=== PATIENT | male | born 1955 | race Caucasian/White ===

== ENCOUNTER 2018-07-28 11:48 | Day surgery (SDC) | payer OTHER ==
[2018-07-28 13:09] VITALS: BMI 32.8
[2018-07-28] MEDS ORDERED: LIDOCAINE HCL 1%, 10 MG/ML (20ML VIAL) ONE (13:41)
[2018-07-28] MEDS ORDERED: HEPARIN NA (PORCINE) 5,000 UNITS/ML 1ML VIAL ONE (13:41)
[2018-07-28] MEDS ORDERED: MIDAZOLAM HCL 2 MG/2 ML SINGLE DOSE VIAL ONE ×2 (13:53)
--- NOTE | 2018-07-28 13:56 | HP ---
Satellite H - Chief Complaint History of Present Illness: 62 year old man with CKD needs access for planned dialysis. He is right handed. 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[employer]IC: Yes: Dementia Cardiovascular: Yes: HTN, Hyperlipdemia Endocrine: Yes: Diabetes Mellitus - Current Medications Current Medications: Home Medications Medication Instructions Recorded Acetaminophen [Tylenol .Regular 650 mg PO Q4H 05/11/13 Strength -] Folic Acid - 1 mg PO DAILY 05/11/13 Thiamine HCl 100 mg PO DAILY 05/11/13 Insulin (Novolog) [Novolog Flexpen 0 units SQ Q6H #0 pen 05/16/13 -] Multivitamins [Multivit ([facility] 1 tab PO DAILY #0 tab 05/16/13 Formulary)] Tamsulosin HCl [Flomax -] 0.4 mg PO DAILY@0830 #0 cap.er.24h 05/16/13 Insulin (Novolog) [Novolog Flexpen 0 units SQ ACHS #0 pen 04/05/14 -] levETIRAcetam [Keppra -] 750 mg PO BID #0 tablet 04/05/14 Amlodipine Besylate [Norvasc -] 5 mg PO DAILY 07/27/18 Atorvastatin Ca [Lipitor] 10 mg PO DAILY 07/27/18 Carvedilol [Coreg -] 25 mg PO DAILY 07/27/18 Ergocalciferol (Vitamin D2) 2,000 unit PO DAILY 07/27/18 [Vitamin D2] Furosemide [Lasix] 80 mg PO DAILY 07/27/18 Risperidone [Risperdal] 0.25 mg PO TID 07/27/18 Tramadol HCl 50 mg PO TID 07/27/18 Satellite Physical Exam - Physical Examination Vital Signs: Vital Signs Period Temp Pulse Resp BP Sys/Sauceda Pulse Ox Last 24 Hr 97.9 F 80 20 116/77 98 General Appearance: Obese ENT: Clear Lung: Clear to auscultation Heart: Regular rate & rhythm Abdomen: Soft Extremities: No edema Satellite Impression/Plan - Impression/Plan Impression: CKD stage 4 Operative Procedure: Creation AV fistula left arm Date to be Performed: 07/28/18
--- NOTE | 2018-07-28 15:48 | OP ---
Operative Note - Note: Operative Date: 07/28/18 Pre-Operative Diagnosis: CKD Operation: Creation AV fistula left arm Findings: Severe calcification of radial artery Post-Operative Diagnosis: Same as Pre-op Surgeon: Juan F Farfan Anesthesiologist/BATCH ATTENDANT: Mau Root Anesthesia: MAC Estimated Blood Loss (mls): 20
[2018-07-28] MEDS ORDERED: SODIUM CHLORIDE 1,000 ML IV SCH (16:00)
[2018-07-28] MEDS ORDERED: ACETAMINOPHEN 325 MG TABLET (FP) PO PRN (16:41)
[2018-07-28] MEDS ORDERED: oxyCODONE HCL 5 MG TABLET PO PRN (16:41)
[2018-07-28] MEDS: INSULIN (NOVOLOG) ASPART 100 UNITS/ML 10ML VIAL SQ SCH (19:11)
[2018-07-28] MEDS ORDERED: ACETAMINOPHEN 325 MG TABLET (FP) ONE (19:13)
[2018-07-28] MEDS ORDERED: ATORVASTATIN CA 10 MG TABLET (FP) PO SCH (22:00)
[2018-07-29] MEDS: levETIRAcetam 500 MG TABLET (FP) PO SCH ×2 (01:40→09:54)
[2018-07-29] MEDS: traMADol HCL 50 MG TABLET PO SCH ×2 (01:41→06:46)
[2018-07-29] MEDS: ACETAMINOPHEN 325 MG TABLET (FP) PO SCH ×5 (01:41→11:17)
[2018-07-29] MEDS: risperiDONE 0.25 MG TABLET (FP) PO SCH ×2 (01:45→06:46)
[2018-07-29] MEDS: INSULIN (NOVOLOG) ASPART 100 UNITS/ML 10ML VIAL SQ SCH ×3 (01:46→11:20)
[2018-07-29 06:30] VITALS: PULSE 83; TEMP 97.8
[2018-07-29] MEDS ORDERED: TAMSULOSIN HCL 0.4 MG CAP PO SCH (08:30)
[2018-07-29 08:58] VITALS: BP 123/71
[2018-07-29] MEDS ORDERED: CARVEDILOL 25 MG TABLET (FP) PO SCH (10:00)
[2018-07-29] MEDS ORDERED: amLODIPine BESYLATE 5 MG TABLET (FP) PO SCH (10:00)
[2018-07-29] MEDS ORDERED: FUROSEMIDE 40 MG TABLET (FP) PO SCH (10:00)
[2018-07-29] MEDS ORDERED: THIAMINE HCL 100 MG TABLET (FP) PO SCH (10:00)
--- NOTE | 2018-08-02 11:14 | OP ---
DATE OF OPERATION: 07/28/2018 OPERATION: Creation of arteriovenous fistula left arm. PREOPERATIVE DIAGNOSIS: Chronic kidney disease. POSTOPERATIVE DIAGNOSIS: Chronic kidney disease. SURGEON: Juan F Solis M.D. ANESTHESIA: Fractional ANESTHESIOLOGIST: Mau Root MD OPERATIVE FINDINGS: The left radial artery was patent with a severely calcified wall. The cephalic vein was patent with a diameter of approximately 3 mm. OPERATIVE PROCEDURE: Following routine patient identification with site and side verification, intravenous sedation was established. Left axillary block was performed. The arm was prepped with ChloraPrep. Timeout was performed. An incision was made over the distal cephalic vein near the wrist, and the vein was exposed. Cautery was used for hemostasis. The vein was ligated distally and incised. It was distended with heparin and propiverine solution. No. 5 and 8 feeding tubes were passed proximally to the level of the antecubital fossa. The vein was filled with heparin saline solution. The artery was then exposed through a parallel incision, and encircled with vesseloops. Side branches were ligated with ties and divided. The artery was severely calcified. There were areas for clamping, and the artery was occluded with the vesseloops and Bulldog clamps. The artery was opened. Inflow was checked and found to be pulsatile. The vein was then freed and spatulated and anastomosed to the side of the artery with running suture of 6-0 Prolene. Prior to suture line, the artery was allowed to back bleed and flush, and the vein was flushed with heparin solution. Suture line was completed, and all vessels were released. There was good flow through the anastomosis with a palpable pulse in the vein. Hemostasis was achieved with Surgicel. The wounds were then closed with interrupted suture of 3-0 Vicryl and skin cinthia. Sterile dressings were applied, and the patient was taken to the recovery room in stable condition. JUAN F SOLIS M.D. [id number]
== END 2018-07-29 14:02 ==
LOC: JASUSAT 11:48 → JASU-SURG 11:48 → J6S 22:50 → JASUSAT 07-29 14:02
PROVIDERS: ATTEND Surgery
PROC: 031C0ZF Bypass Left Radial Artery to Lower Arm Vein, Open Approach (ICD-10-PCS; principal; 2018-07-28 10:00)
DX: I12.0 Hypertensive chronic kidney disease with stage 5 chronic kidney disease or end stage renal disease (principal); E11.22 Type 2 diabetes mellitus with diabetic chronic kidney disease; N18.6 End stage renal disease; Z99.2 Dependence on renal dialysis; Z79.4 Long term (current) use of insulin
CPT/HCPCS: 36415; 82962; 84132; 94760; J1644

== ENCOUNTER 2018-08-12 20:29 | Emergency (ER) | payer OTHER ==
[2018-08-12 20:51] VITALS: BP 141/79; PULSE 82; TEMP 97.4; BMI 27.8
--- NOTE | 2018-08-12 21:08 | PDOC ---
History of Present Illness - General Chief Complaint: Seizure Stated Complaint: SEIZURE Time Seen by Provider: 08/12/18 20:38 - History of Present Illness Initial Comments: 08/12/18 22:00 Pt. is a 62 y.o. M w/ PMHx of CKD Stage 4 (did not undergo AVF on left arm yet? Per Pt.), HTN, NIDDM, GERD, BPH, seizure disorder unspecified, CAD, HLD, vitamin B9 deficiency, and spondylopathy BIBEMS after being found unresponsive in his room at [facility] at around 7pm. Pt. denies any recollection of the events before the episode but does endorse feeling dizzy and confused. Pt. denies passing urine but presented with the odor of urine on his clothes. Pt. states that he has a cough that he has had for the last week with production of clear/white phlegm. Pt. denies any other symptoms including headache, nausea,vomiting, fever, chills, chest pain, shortness of breath, diarrhea, constipation, numbness tingling, changes in vision or any other symptom. Pt. denies hitting head when passing out or any head pain. Of note Pt. is a poor historian and was A&O x 1 to name only. BG on admission was 262- Hypoglycemic episode ruled out Head CT, EKG, Troponin, CPK, CBC, CMP, Keppra level and alcohol level ordered. 08/12/18 22:35 ON further charyt review the left radial artery was severely calcified. Per operative note surgery went to completion. F/u with Dr. Farfan for complete report. 08/12/18 23:31 Called Lab to inquire about Keppra level, they informed that it is a send-out lab and would take a couple days to get back. Pt. reevaluated and mental status improving. Will give Keppra 1,000 PO and then discharge home with instructions to follow up with PCP and with Neurologist. Timing/Duration: 1-3 hours Severity: mild Associated Symptoms: reports: denies symptoms Aspirin Received prior to arrival: Yes: no aspirin today Beta Edgar Taken at Home(Core Measure): Yes Past History - Travel Traveled outside of the country in the last 30 days: No Close contact w/someone who was outside of country & ill: No - Past Medical History Allergies/Adverse Reactions: Allergies Allergy/AdvReac Type Severity Reaction Status Date / Time No Known Drug Allergies Allergy Verified 08/12/18 20:51 Home Medications: Ambulatory Orders Acetaminophen [Tylenol .Regular Strength -] 650 mg PO Q4H 05/11/13 Folic Acid - 1 mg PO DAILY 05/11/13 Thiamine HCl 100 mg PO DAILY 05/11/13 Insulin (Novolog) [Novolog Flexpen -] 0 units SQ Q6H #0 pen 05/16/13 Multivitamins [Multivit ([facility] Formulary)] 1 tab PO DAILY #0 tab 05/16/13 Tamsulosin HCl [Flomax -] 0.4 mg PO DAILY@0830 #0 cap.er.24h 05/16/13 Insulin (Novolog) [Novolog Flexpen -] 0 units SQ ACHS #0 pen 04/05/14 levETIRAcetam [Keppra -] 750 mg PO BID #0 tablet 04/05/14 Amlodipine Besylate [Norvasc -] 5 mg PO DAILY 07/27/18 Atorvastatin Ca [Lipitor] 10 mg PO DAILY 07/27/18 Carvedilol [Coreg -] 25 mg PO DAILY 07/27/18 Ergocalciferol (Vitamin D2) [Vitamin D2] 2,000 unit PO DAILY 07/27/18 Furosemide [Lasix] 80 mg PO DAILY 07/27/18 Risperidone [Risperdal] 0.25 mg PO TID 07/27/18 Tramadol HCl 50 mg PO TID 07/27/18 Anemia: No Asthma: No Cancer: No Cardiac Disorders: No CVA: Yes (2005) COPD: No CHF: No Dementia: No Diabetes: Yes GI Disorders: No Disorders: No HTN: Yes Hypercholesterolemia: Yes Liver Disease: No Seizures: Yes Thyroid Disease: Yes - Suicide/Smoking/Psychosocial Hx Smoking Status: No Smoking History: Never smoked Have you smoked in the past 12 months: No Information on smoking cessation initiated: No Hx Alcohol Use: No Drug/Substance Use Hx: No Substance Use Type: None Review of Systems - Review of Systems Able to Perform ROS?: Yes Is the patient limited Khmer proficient: No Constitutional: No: Symptoms Reported HEENTM: No: Symptoms Reported Respiratory: No: Symptoms reported Cardiac (ROS): Yes: Symptoms Reported, Lightheadedness. No: Chest Pain, Irregular Heart Rate, Palpitations ABD/GI: No: Symptoms Reported : No: Symptoms Reported Musculoskeletal: No: Symptoms Reported Integumentary: No: Symptoms Reported Neurological: Yes: Symptoms reported, Dizziness Endocrine: No: Symptoms Reported Hematologic/Lymphatic: No: Symptoms Reported *Physical Exam - Vital Signs Last Vital Signs Temp Pulse Resp BP Pulse Ox 97.4 F L 82 17 141/79 97 08/12/18 20:29 08/12/18 20:29 08/12/18 20:29 08/12/18 20:29 08/12/18 20:29 - Physical Exam General Appearance: Yes: Nourished, Appropriately Dressed, Disheveled. No: Apparent Distress HEENT: positive: EOMI, WILFRID, Normal ENT Inspection, Normal Voice, Symmetrical, Pharynx Normal, Hearing Grossly Normal. negative: Pharyngeal Erythema, Tonsillar Exudate, Tonsillar Erythema, Nasal Congestion, Sinus Tenderness, Thrush Neck: positive: Trachea midline, Normal Thyroid, Supple. negative: Tender, Carotid bruit, Thyromegaly Respiratory/Chest: positive: Lungs Clear, Normal Breath Sounds. negative: Chest Tender, Respiratory Distress, Accessory Muscle Use, Labored Respiration, Rapid RR, Crackles, Rhonchi, Wheezing Cardiovascular: positive: Regular Rhythm, Regular Rate, S1, S2. negative: Edema , JVD, Murmur Vascular Pulses: Dorsalis-Pedis (R): 2+, Doralis-Pedis (L): 2+ Gastrointestinal/Abdominal: positive: Normal Bowel Sounds, Soft. negative: Tender, Protuberent, Guarding, Tenderness, Hernia Rectal Exam: positive: deferred Musculoskeletal: positive: Normal Inspection. negative: CVA Tenderness, Decreased Range of Motion, Vertebral Tenderness Extremity: positive: Normal Capillary Refill, Normal Inspection, Normal Range of Motion. negative: Tender, Coldness, Pedal Edema, Swelling, Calf Tenderness, Erythema Integumentary: positive: Normal Color, Dry, Warm. negative: Swelling Neurologic: positive: Alert, Normal Mood/Affect, Normal Response, Respond to painful stimul, Responsive, Confused, Disoriented. negative: Fully Oriented (A& O x 1 to name only), Numbness Moderate Sedation - Procedure Monitoring Vital Signs: Procedure Monitoring Vital Signs Temperature 97.4 F L 08/12/18 20:29 Pulse Rate 82 08/12/18 20:29 Respiratory Rate 17 08/12/18 20:29 Blood Pressure 141/79 08/12/18 20:29 O2 Sat by Pulse Oximetry (%) 97 08/12/18 20:29 ED Treatment Course - LABORATORY CBC & Chemistry Diagram: 08/12/18 21:44 08/12/18 21:44 *DC/Admit/Observation/Transfer Diagnosis at time of Disposition: Seizure - Discharge Dispostion Disposition: [facility]AY FACILITY Condition at time of disposition: Improved - Referrals - Patient Instructions Printed Discharge Instructions: DI for Seizure Disorder -- Adult Additional Instructions: You were brought in by ambulance after being found in your room unconscious. You had tests for your heart(EKG and Troponin) which came back negative for anything immediately wrong. You had imaging ( Head CT and Chest X-ray) which came back negative for anything immediately wrong. We gave you 1,00mg of Keppra. Please continue taking all your medications as they were prescribed. Please follow up with your Primary Care Physician within 1 week. Please follow up with your Neurologist within 1 week. - Post Discharge Activity
[2018-08-12 22:02] LABS: BASO % 0.6 % (0-2.0); EOS % 2.3 % (0-4.5); HEMATOCRIT 30.4 % (35.4-49); HEMOGLOBIN 10.9 GM/dL (11.7-16.9); MCH 29.4 pg (25.7-33.7); MCHC 35.8 g/dl (32.0-35.9); MEAN CELL VOLUME 82.1 fl (80-96); MEAN PLT VOLUME 8.4 fl (7.5-11.1); MONO % 6.5 % (3.8-10.2); NEUT % 78.6 % (42.8-82.8); PLATELET COUNT 241 K/MM3 (134-434); RDW 14.1 % (11.9-15.9); WHITE BLOOD COUNT 10.8 K/mm3 (4.0-10.0)
[2018-08-12 22:25] LABS: ALBUMIN 2.8 g/dl (3.4-5.0); ALK PHOS 116 U/L (45-117); ANION GAP 9 MMOL/L (8-16); BILIRUBIN,TOTAL 0.2 mg/dL (0.2-1); BLOOD UREA NITROGEN 61 mg/dL (7-18); CALCIUM 8.3 mg/dL (8.5-10.1); CHLORIDE 100 mmol/L (98-107); CO2 27 mmol/L (21-32); CREATININE 4.9 mg/dL (0.55-1.3); GLUCOSE,RANDOM 235 mg/dL (74-106); POTASSIUM 4.5 mmol/L (3.5-5.1); SGOT/AST 10 U/L (15-37); SGPT/ALT 15 U/L (13-61); SODIUM 136 mmol/L (136-145); TOT PROT 7.6 g/dl (6.4-8.2)
[2018-08-12] MEDS ORDERED: levETIRAcetam 500 MG TABLET (FP) PO ONE ×2 (23:33→23:49)
--- NOTE | 2018-08-13 00:26 | PDOC ---
Attending Attestation - HPI HPI: This patient is a 62 year old male, with PMHx of asthma, HTN, HLD, seizure disorder, NIDDM, CKD stage IV, alcohol abuse, GERD, BPH, CAD, vitamin B9 deficiency, and spondylopathy who was BIBA from [facility], s/p seizure. Patient is a poor historian, but states that around 7pm he passed out in his room and believed he had a seizure. He states that he woke up dizzy and confused. He denies hitting his head, denies urinating on himself (smells of urine however). Denies headache. He states that fall was unwitnessed. Patient also endorses 1 week of productive cough with clear/ whitish sputum. Patient denies any nausea, vomiting, fever, chills, chest pain, shortness of breath, diarrhea, constipation, numbness or tingling, changes in vision or any other symptom. <Mavis Mckay - Last Filed: 08/13/18 00:37> - Resident Resident Name: Jr Barahona - ED Attending Attestation I have performed the following: I have examined & evaluated the patient, The case was reviewed & discussed with the resident, I agree w/resident's findings & plan, Exceptions are as noted - Physicial Exam PE: 08/13/18 00:58 Vitals: Triage Vital signs reviewed General Appearance: no acute distress, well nourished well developed, Head: Atraumatic, Eyes: Pupils equal reactive round, extraocular movement intact Chest Wall: Nontender Cardiac: Regular rate and rhythym, no murmurs, no rubs, no gallops, Lungs: Clear to auscultation bilateral, good air movement bilaterally, Abdomen: Soft, non distended, normal bowel sounds, non tender to palpation Extremities: Full range of motion to all extremities, no cyanosis, clubbing, or edema Skin: Warm and dry, no rashes or lesions, no rash, no petechiae Neuro: AOX3; Cranial Nerves 2-12 grossly intact, Strength intact to all extremities, Sensation intact to all extremities, Psych: normal mood, normal affect - Medical Decision Making 08/13/18 00:59 This patient is a 62 year old male, with PMHx of asthma, HTN, HLD, seizure disorder, NIDDM, CKD stage IV, alcohol abuse, GERD, BPH, CAD, vitamin B9 deficiency, and spondylopathy who was BIBA from [facility] living [facility], s/p seizure. Patient is a poor historian, but states that around 7pm he passed out in his room and believed he had a seizure. He states that he woke up dizzy and confused. He denies hitting his head, denies urinating on himself (smells of urine however). Denies headache. He states that fall was unwitnessed. Patient also endorses 1 week of productive cough with clear/ whitish sputum. Patient presented with likely seizure Initially postictal with normal fingerstick upon presentation Head CT labs within normal limits. Patient observed in the emergency department for 4 hours his sensorium has cleared he is no longer postictal he is now alert and oriented 3 Patient was loaded with 1 g Keppra findings medications and need for follow-up discussed with patient's assisted living facility. Findings, the need for follow-up and strict return instructions discussed with patient. <Hector Dotson - Last Filed: 08/13/18 01:00> Heart Score/ECG Review - ECG Impressions Comment:: 08/13/18 01:00 EKG performed at 2155 demonstrates normal sinus rhythm no ST elevations or T- wave inversions. Interpreted by me <Hector Dotson - Last Filed: 08/13/18 01:00>
--- NOTE | 2018-08-13 16:42 | EKG ---
Test Reason : Blood Pressure : / mmHG Vent. Rate : 087 BPM Atrial Rate : 087 BPM P-R Int : 174 ms QRS Dur : 088 ms QT Int : 384 ms P-R-T Axes : 034 074 010 degrees QTc Int : 462 ms NORMAL SINUS RHYTHM POOR R WAVE PROGRESSION BORDERLINE ECG Confirmed by MD REED, JOSE G ([id number] on 08/13/2018 4:41:43 PM Referred By: Confirmed By:JOSE G MCBRIDE MD
== END 2018-08-13 02:06 ==
LOC: JER 20:29
DX: G40.909 Epilepsy, unspecified, not intractable, without status epilepticus (principal); I25.10 Atherosclerotic heart disease of native coronary artery without angina pectoris; I13.10 Hypertensive heart and chronic kidney disease without heart failure, with stage 1 through stage 4 chronic kidney disease, or unspecified chronic kidney disease; N18.4 Chronic kidney disease, stage 4 (severe); E11.9 Type 2 diabetes mellitus without complications; Z79.84 Long term (current) use of oral hypoglycemic drugs; K21.9 Gastro-esophageal reflux disease without esophagitis; N40.0 Benign prostatic hyperplasia without lower urinary tract symptoms; E78.5 Hyperlipidemia, unspecified; E53.8 Deficiency of other specified B group vitamins; F10.10 Alcohol abuse, uncomplicated; Z86.73 Personal history of transient ischemic attack (TIA), and cerebral infarction without residual deficits
CPT/HCPCS: 36415; 70450-TC; 71045-TC-FY; 80053; 80177; 80307; 82550; 82962; 84484; 85025; 93005; 93010; 99282-25